=== PATIENT | female | born 1990 | race Caucasian/White ===

== ENCOUNTER 2018-07-29 00:03 | Emergency (ER) | payer MEDICAID, OTHER ==
--- NOTE | 2018-07-29 00:28 | ERPHSYRPT ---
- History of Present Illness Time Seen by Provider: 07/29/18 00:23 Historian: patient Exam Limitations: no limitations Physician History: 27-year-old white female who states that she was released from [facility] in [place] today where she was treated for hepatitis A and liver failure. Arrives with complaint of a abdominal pain located in the lower abdomen symptoms since 9:00 this evening. Patient states she has had vomiting. Past medical history includes hepatitis A, elevated liver enzymes, inflamed gallbladder. Past surgical history includes 2, myringotomy tubes, abdominal drain tube. Timing/Duration: other (patient recently hospitalized for abdominal pain and was released today from [place] complaining of abdominal pain again today at 9:00 this evening) Activities at Onset: none Quality: aching, cramping Abdominal Pain Onset Location: other (lower abdomen) Pain Radiation: no radiation Severity of Pain-Max: moderate Severity of Pain-Current: moderate Modifying Factors: Improves With: nothing Associated Symptoms: nausea, vomiting, No back, No chest pain, No diaphoresis, No diarrhea, No fever/chills, No fatigue, No headache, No heartburn, No loss of appetite, No neck pain, No rash, No shortness of breath, No syncope Previous symptoms: recently seen (released from [facility] today) Allergies/Adverse Reactions: cephalexin [From Keflex] Allergy (Verified 07/29/18 00:25) - Review of Systems Constitutional: No Fever, No Chills Eyes: No Symptoms, Other (patient with ictyeric sclera) Ears, Nose, & Throat: No Symptoms Respiratory: No Cough, No Dyspnea Cardiac: No Chest Pain, No Edema, No Syncope Abdominal/Gastrointestinal: Abdominal Pain, Nausea, Vomiting, Other (history of liver failure, hepatitis a), No Constipation, No Hematemesis, No Hematochezia , No Melena, No Dysphagia Genitourinary Symptoms: No Dysuria Musculoskeletal: No Back Pain, No Neck Pain Skin: No Rash Neurological: No Dizziness, No Focal Weakness, No Sensory Changes Psychological: No Symptoms Endocrine: No Symptoms All Other Systems: Reviewed and Negative - Past Medical History Pertinent Past Medical History: No Neurological History: Migraines ENT History: No Pertinent History Cardiac History: No Pertinent History Respiratory History: No Pertinent History Endocrine Medical History: No Pertinent History Musculoskeletal History: No Pertinent History GI Medical History: No Pertinent History History: No Pertinent History Psycho-Social History: Anxiety, Attention Deficit Disorder, Depression Female Reproductive Disorders: No Pertinent History Other Medical History: anemia - Past Surgical History Past Surgical History: Yes Neuro Surgical History: No Pertinent History Cardiac: No Pertinent History Respiratory: No Pertinent History Gastrointestinal: No Pertinent History Genitourinary: No Pertinent History Musculoskeletal: No Pertinent History Female Surgical History: Section, Other Other Surgical History: toniselectomy, adenoidectomy, bilateral placement of tubes in ears, D&C - Social History Smoking Status: Former smoker Exposure to second hand smoke: No Drug Use: none Significant Family History: no pertinent family hx - Nursing Vital Signs Nursing Vital Signs: Initial Vital Signs Temperature 98.4 F 07/29/18 00:13 Pulse Rate 58 L 07/29/18 00:13 Respiratory Rate 18 07/29/18 00:13 Blood Pressure 131/78 07/29/18 00:13 O2 Sat by Pulse Oximetry 100 07/29/18 00:13 Pain Scale Pain Intensity 10 - Physical Exam General Appearance: mild distress, alert, other (jaundice) Eye Exam: PERRL/EOMI, eyes nml inspection, scleral icterus, other Ears, Nose, Throat Exam: normal ENT inspection, pharynx normal, moist mucous membranes Neck Exam: normal inspection, non-tender, supple, full range of motion Respiratory Exam: normal breath sounds, lungs clear, No respiratory distress Cardiovascular Exam: regular rate/rhythm, normal heart sounds Gastrointestinal/Abdomen Exam: soft, normal bowel sounds, tenderness (lower abdominal tenderness drain in place right mid abdomen) Back Exam: normal inspection, normal range of motion, No CVA tenderness, No vertebral tenderness Extremity Exam: normal inspection, normal range of motion, pelvis stable Neurologic Exam: alert, oriented x 3, cooperative, 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 Small calcified gallstone. Small amount of free fluid in the abdomen and pelvis could be ascites or could be late bowel related to the presence of the percutaneous cholecystectomy 2. Mild nonspecific periportal edema 3. Focal areas of dense atelectasis versus infiltrate/pneumonia in the costophrenic angles bilaterally. Small left pleural effusion and tiny right pleural effusion.4. Diffuse stranding of the subcutaneous fat suggesting subcutaneous edema.) Ordered Tests: Active Orders 24 hr Category Date Time Status IV Insertion STAT Care 07/29/18 00:16 Active ABDOMEN AND PELVIS W/0 CONTRAS [CT] Stat Exams 07/29/18 01:37 Taken AMYLASE Stat Lab 07/29/18 01:05 Completed CBC W DIFF Stat Lab 07/29/18 01:05 Completed CMP Stat Lab 07/29/18 01:05 Completed CULTURE,URINE Stat Lab 07/29/18 01:12 Received HCG QUALITATIVE,SERUM Stat Lab 07/29/18 01:05 Completed LIPASE Stat Lab 07/29/18 01:05 Completed Manual Differential NC Stat Lab 07/29/18 01:05 Completed UA W/RFX UR CULTURE Stat Lab 07/29/18 01:12 Completed Medication Summary Generic Name Dose Route Start Last Admin Trade Name Freq PRN Reason Stop Dose Admin Sodium Chloride 1,000 mls @ 100 mls/hr 07/29/18 00:30 07/29/18 02:03 Sodium Chloride 0.9% 1000 Ml IV 08/28/18 00:29 100 mls/hr .Q10H MELISSA Administration Discontinued Medications Generic Name Dose Route Start Last Admin Trade Name Freq PRN Reason Stop Dose Admin Morphine Sulfate 4 mg 07/29/18 01:42 07/29/18 02:04 Morphine Sulfate 4 Mg Inj IM 07/29/18 01:43 4 mg STAT ONE Administration Morphine Sulfate Confirm 07/29/18 01:45 Morphine Sulfate 4 Mg Inj Administered 07/29/18 01:46 Dose 4 mg .ROUTE .STK-MED ONE Ondansetron HCl 4 mg 07/29/18 01:42 07/29/18 01:50 Zofran Odt 4 Mg PO 07/29/18 01:43 4 mg STAT ONE Administration Ondansetron HCl Confirm 07/29/18 01:44 Zofran Odt 4 Mg Administered 07/29/18 01:45 Dose 4 mg .ROUTE .STK-MED ONE Lab/Rad Data: Laboratory Result Diagrams 07/29/18 01:05 07/29/18 01:05 Laboratory Results 07/29/18 07/29/18 07/29/18 Range/Units 01:12 01:05 01:05 WBC (4.0-10.5) K/mm3 RBC (4.1-5.4) M/mm3 Hgb (12.0-16.0) gm/dl Hct (35-47) % MCV (78-100) fl MCH (26-32) pg MCHC (32-36) g/dl RDW (11.5-14.0) % Plt Count (150-450) K/mm3 MPV (6-9.5) fl Absolute Granulocytes (1.4-6.9) Segmented Neutrophils (36.0-66.0) % Band Neutrophils (0.0-2.0) % Lymphocytes (Manual) (24-44) % Monocytes (Manual) (0.0-12.0) % Eosinophils (Manual) (0.00-3.0) % Hypochromia Platelet Estimate (NORMAL) RBC Morphology Polychromasia Sodium 139 (137-145) mmol/L Potassium 4.7 (3.5-5.1) mmol/L Chloride 107 (98-107) mmol/L Carbon Dioxide 26 (22-30) mmol/L Anion Gap 10.7 (5-15) MEQ/L BUN 7 (7-17) mg/dL Creatinine 0.43 L (0.52-1.04) mg/dL Estimated GFR > 60.0 ML/MIN Glucose 88 (74-106) mg/dL Calcium 8.1 L (8.4-10.2) mg/dL Total Bilirubin 7.10 H (0.2-1.3) mg/dL AST 104 H (14-36) U/L ALT 387 H (0-35) U/L Alkaline Phosphatase 244 H (38-126) U/L Serum Total Protein 6.6 (6.3-8.2) g/dL Albumin 2.7 L (3.5-5.0) g/dL Amylase 106 (30-110) U/L Lipase 66 (23-300) U/L Serum , Qual NEGATIVE (Negative) Urine Color YELLOW (YELLOW) Urine Appearance CLEAR (CLEAR) Urine pH 7.0 (5-6) Ur Specific Hudson 1.003 (1.005-1.025) Urine Protein NEGATIVE (Negative) Urine Ketones NEGATIVE (NEGATIVE) Urine Blood MODERATE (0-5) Melvin/ul Urine Nitrite NEGATIVE (NEGATIVE) Urine Bilirubin NEGATIVE (NEGATIVE) Urine Urobilinogen NEGATIVE (0-1) mg/dL Ur Leukocyte Esterase SMALL (NEGATIVE) Urine WBC (Auto) 3-5 (0-5) /HPF Urine RBC (Auto) 3-5 (0-2) /HPF U Epithel Cells (Auto) RARE (FEW) /HPF Urine Bacteria (Auto) NONE SEEN (NEGATIVE) /HPF Urine Culture Reflexed YES (NO) Urine Glucose NEGATIVE (NEGATIVE) mg/dL 07/29/18 Range/Units 01:05 WBC 7.9 (4.0-10.5) K/mm3 RBC 3.81 L (4.1-5.4) M/mm3 Hgb 12.0 (12.0-16.0) gm/dl Hct 36.0 (35-47) % MCV 94.5 (78-100) fl MCH 31.4 (26-32) pg MCHC 33.3 (32-36) g/dl RDW 14.9 H (11.5-14.0) % Plt Count 312 (150-450) K/mm3 MPV 11.2 H (6-9.5) fl Absolute Granulocytes 4.57 (1.4-6.9) Segmented Neutrophils 67 H (36.0-66.0) % Band Neutrophils 4 H (0.0-2.0) % Lymphocytes (Manual) 20 L (24-44) % Monocytes (Manual) 7 (0.0-12.0) % Eosinophils (Manual) 2 (0.00-3.0) % Hypochromia 2+ Platelet Estimate NORMAL (NORMAL) RBC Morphology ABNORMAL Polychromasia 1+ Sodium (137-145) mmol/L Potassium (3.5-5.1) mmol/L Chloride (98-107) mmol/L Carbon Dioxide (22-30) mmol/L Anion Gap (5-15) MEQ/L BUN (7-17) mg/dL Creatinine (0.52-1.04) mg/dL Estimated GFR ML/MIN Glucose (74-106) mg/dL Calcium (8.4-10.2) mg/dL Total Bilirubin (0.2-1.3) mg/dL AST (14-36) U/L ALT (0-35) U/L Alkaline Phosphatase (38-126) U/L Serum Total Protein (6.3-8.2) g/dL Albumin (3.5-5.0) g/dL Amylase (30-110) U/L Lipase (23-300) U/L Serum , Qual (Negative) Urine Color (YELLOW) Urine Appearance (CLEAR) Urine pH (5-6) Ur Specific Hudson (1.005-1.025) Urine Protein (Negative) Urine Ketones (NEGATIVE) Urine Blood (0-5) Melvin/ul Urine Nitrite (NEGATIVE) Urine Bilirubin (NEGATIVE) Urine Urobilinogen (0-1) mg/dL Ur Leukocyte Esterase (NEGATIVE) Urine WBC (Auto) (0-5) /HPF Urine RBC (Auto) (0-2) /HPF U Epithel Cells (Auto) (FEW) /HPF Urine Bacteria (Auto) (NEGATIVE) /HPF Urine Culture Reflexed (NO) Urine Glucose (NEGATIVE) mg/dL - Progress Progress: improved Progress Note: 07/29/18 04:05 This is a 27-year-old white female with history of hepatitis A, cholecystitis, who has had a recent of drain placed in her gallbladder. The patient was initially admitted to [facility] in [place] she states that she had hepatitis but also had been diagnosed with cholecystitis unfortunately the patient was not a surgical candidate because of her hepatitis. She was transferred to [facility] in [place] where she was treated with Zosyn she apparently had a percutaneous drain placed in her gallbladder. She was released today from [place] and she stated that she went to [place] where she was planning on moving and at approximately 9 PM tonight she began to have pain bilateral abdomen mid abdomen she has been having some vomiting. Patient is jaundiced on appearance she has icteric sclera. She has a total bilirubin of 7.10 AST is 104 ALT is 387 amylase is 106 lipase 66 Patient with chemistry other than the liver enzymes which appear to be normal Patient with a white count of 7.9 hemoglobin 12.0 hematocrit 39[address] of the abdomen and pelvis without contrast Impression 1. Small-caliber pigtail drain with the tip curled in the gallbladder. Small calcified gallstone. Small amount of free fluid in the abdomen and pelvis, could be ascites or could be leaking bile related to the presence of the percutaneous cholecystostomy tube. 2. Mild nonspecific. Portal edema 3. Focal areas of dense atelectasis versus infiltrate/pneumonia in the costophrenic angles bilaterally. Small left pleural effusion and tiny right pleural effusion. 4. Diffuse stranding of the subcutaneous fat suggestive of subcutaneous edema. Patient is given IV normal saline 100 mL per hour she is given morphine 4 mg IV Zofran 4 mg IV. Patient was already on Zosyn which was discontinued today she was sent home on Augmentin also Zofran, also Percocet she did not fill her Augmentin. Patient is improved after IV normal saline morphine and Zofran. I've discussed the case with Dr. Val[facility] at [facility] he has accepted the patient for transfer. Patient was not given additional antibiotics here in the emergency room she is afebrile she has been treated with Zosyn at [place]. Patient will be transferred to [facility] impression 1 abdominal pain 2. Cholecystitis 3, hepatitis A. - Departure Departure Disposition: Transfer ([facility]) Clinical Impression: Cholecystitis Abdominal pain Qualifiers: Abdominal location: unspecified location Qualified Code(s): R10.9 - Unspecified abdominal pain Hepatitis A Qualifiers: Hepatic coma status: without hepatic coma Qualified Code(s): B15.9 - Hepatitis A without hepatic coma Condition: Fair Critical Care Time: No Referrals: DOCTOR,NO FAMILY [Primary Care Provider] -
[2018-07-29] MEDS ORDERED: Sodium Chloride 0.9% 1000 ML 1,000 ML IV SCH (00:30)
[2018-07-29 01:08] LABS: Granulocyte Absolute (ANC) 4.57 (1.4-6.9); Mean Cell Volume 94.5 fl (78-100); Mean Corpuscular Hgb Concent. 33.3 g/dl (32-36); Mean Platelet Volume 11.2 fl (6-9.5); Platelet Count 312 K/mm3 (150-450); Red Blood Count 3.81 M/mm3 (4.1-5.4); Red Cell Distribution Width 14.9 % (11.5-14.0); White Blood Count 7.9 K/mm3 (4.0-10.5)
[2018-07-29 01:18] LABS: Mean Corpuscular Hemoglobin 31.4 pg (26-32)
[2018-07-29 01:20] LABS: Appearance CLEAR (CLEAR); Bilirubin NEGATIVE (NEGATIVE); Blood MODERATE Ery/ul (0-5); Epithelial Cells RARE /HPF (FEW); Glucose NEGATIVE (NEGATIVE); Ketones NEGATIVE (NEGATIVE); Leukocyte Esterase SMALL (NEGATIVE); Nitrite NEGATIVE (NEGATIVE); Protein,Urine Dip NEGATIVE (Negative); Specific Gravity 1.003 (1.005-1.025); Urobilinogen NEGATIVE mg/dL (0-1)
[2018-07-29 01:21] LABS: Bacteria NONE SEEN /HPF (NEGATIVE)
[2018-07-29 01:26] LABS: ALBUMIN 2.7 g/dL (3.5-5.0); ALKALINE PHOSPHATASE 244 U/L (38-126); AMYLASE 106 U/L (30-110); ANION GAP 10.7 MEQ/L (5-15); BLOOD UREA NITROGEN 7 mg/dL (7-17); CHLORIDE 107 mmol/L (98-107); Calcium 8.1 mg/dL (8.4-10.2); Carbon Dioxide 26 mmol/L (22-30); Creatinine 1 0.43 mg/dL (0.52-1.04); Glucose 88 mg/dL (74-106); LIPASE 66 U/L (23-300); Potassium 4.7 mmol/L (3.5-5.1); SGOT/AST 104 U/L (14-36); SGPT/ALT 387 U/L (0-35); SODIUM 139 mmol/L (137-145); Total Protein 6.6 g/dL (6.3-8.2)
[2018-07-29] MEDS ORDERED: MORPHINE SULFATE 4 MG INJ IM ONE (01:42)
[2018-07-29] MEDS ORDERED: ZOFRAN ODT 4 MG PO ONE (01:42)
[2018-07-29] MEDS ORDERED: ZOFRAN ODT 4 MG ONE (01:44)
[2018-07-29] MEDS ORDERED: MORPHINE SULFATE 4 MG INJ ONE (01:45)
[2018-07-29] MEDS ORDERED: Sodium Chloride 0.9% 1000 ML 1,000 ML ONE (01:59)
[2018-07-29 02:07] LABS: BAND 4 % (0.0-2.0); Eosinophil 2 % (0.00-3.0); Hypochromia 2+; Lymphocytes 20 % (24-44); Monocyte 7 % (0.0-12.0); Neutrophils 67 % (36.0-66.0); Platelet Estimate NORMAL (NORMAL); Total Cells Counted 100
[2018-07-29 02:08] LABS: Polychromasia 1+
[2018-07-29] MEDS ORDERED: Zofran 4 MG/2 ML VIAL IV ONE (04:54)
[2018-07-29] MEDS ORDERED: Zofran 4 MG/2 ML VIAL ONE (04:55)
[2018-07-29 04:58] VITALS: BP 104/57; PULSE 70; O2SAT 100
--- NOTE | 2018-07-29 08:24 | XRAY ---
Indication: Abdomen pain and distention. Elevated liver enzymes. Status post percutaneous gallbladder drainage catheter. Multiple contiguous axial images obtained through the abdomen and pelvis without contrast as ordered. Comparison: November 05, 2012. Lung bases demonstrates tiny bibasilar pleural effusions with atelectasis. Heart is not enlarged. Noncontrasted stomach and bowel loops appear nonobstructed. Appendix not seen. Tiny free fluid along both colic gutters and pelvis. No walled fluid collection or free air. Percutaneous drainage catheter with pigtail in the gallbladder. 6 mm gallstone. Mild periportal edema. Spleen is enlarged measuring 13.5 cm and hepatomegaly measuring 21 cm. Remaining liver, pancreas, adrenal glands, kidneys, ureters, bladder, uterus, and aorta appear unremarkable for noncontrast exam. Osseous structures intact. There is diffuse anasarca. Impression: 1. Percutaneous gallbladder drainage catheter in situ with subcentimeter gallstone and periportal edema. 2. Tiny abdomen/pelvic free fluid and diffuse anasarca. 3. Hepatosplenomegaly. 4. Tiny bibasilar pleural effusions/atelectasis. Comment: Preliminary interpretation was made by C. No critical discrepancy. CTDI 22.02
== END 2018-07-29 05:04 | disposition short-term general hospital (02) ==
LOC: ED 00:03
DX: K81.9 Cholecystitis, unspecified (principal); R10.9 Unspecified abdominal pain; B15.9 Hepatitis A without hepatic coma; F41.9 Anxiety disorder, unspecified; F32.9 Major depressive disorder, single episode, unspecified
CPT/HCPCS: 36000; 36415; 74176; 80053; 81001; 81025; 82150; 83690; 85025; 87086; 96360; 96361; 96372; 96374; 96375; 99285; J2270; J2405; Q0162